=== PATIENT | male | born 1935 | race Caucasian/White ===

== ENCOUNTER → 2017-09-04 | Outpatient (CLI) | payer OTHER | END | disposition home or self-care (01) | LOC: KCIC 12:29 | DX: J43.9 Emphysema, unspecified (principal); M47.894 Other spondylosis, thoracic region; D71 Functional disorders of polymorphonuclear neutrophils; I70.0 Atherosclerosis of aorta | CPT/HCPCS: 71046 ==

== ENCOUNTER → 2020-01-05 | Outpatient (CLI) | payer MEDICARE ==
--- NOTE | 2020-01-05 16:02 | RAD ---
MR#: [id number] Date of Study: 01/05/2020 Ordering Physician: RAFAEL BLANCO, Referring Physician: RAFAEL BLANCO, Tech: Aidan Garza MBA, RDMS, RVT, RDCS, RTR APPROVED REPORT Patient Location: OUT-PATIENT Laterality:Bilateral Indications Bruit Doppler Spectral Velocity Analysis Right Left pCCA 82/9 cm/spCCA 77/13 cm/s mCCA 77/8 cm/smCCA 93/14 cm/s dCCA 80/10 cm/sdCCA 94/14 cm/s Bulb 87/15 cm/sBulb 121/26 cm/s ECA 119/ cm/sECA 226/ cm/s pICA 114/19 cm/spICA 128/19 cm/s Leilani 122/22 cm/smICA 100/20 cm/s dICA 110/19 cm/sdICA 100/18 cm/s Vert. 44/ cm/sVert. 103/ cm/s Subcl. 205/ cm/sSubcl. 152/ cm/s ICA/CCA 1.49ICA/CCA 1.66 Findings Grayscale images of the bilateral common carotid, external and internal carotid vessels demonstrates mild diffuse intimal hyperplasia. There is heavy calcific plaque burden at the level of the carotid bifurcation bilaterally. Nonetheless, based on velocity and Doppler evaluation there is overall 0 to less than 50% stenosis involving the bilateral internal carotid arteries. Bilateral vertebral veloc ities are antegrade. Likely greater than 50% stenosis involving the left external carotid artery onl y. Right external carotid artery is otherwise unremarkable. No significant subclavian disease bilat erally Critical Notification Critical Value: No <Conclusion> 1. Grayscale images demonstrate heavy calcific plaque burden at the level of the carotid bifurcation s, based on velocity criteria overall though there is 0 to less than 50% stenosis. 2. If there is prior history of CVA or clinical concern for TIAs, would consider CT angiography of t he neck and cerebral vessels. Signed by : Robert Sepulveda, Electronically Approved : 01/05/2020 16:01:56
--- NOTE | 2020-01-05 16:34 | CARD ---
MR#: [id number] Date of Study: 01/05/2020 Ordering Physician: RAFAEL DEL REAL, Referring Physician: RAFAEL DEL REAL, Tech: Kristy Shea IJEOMA APPROVED REPORT EXAM: Two-dimensional and M-mode echocardiogram with Doppler and color Doppler. Other Information Quality : Technically Limited Technically limited study due to rib/lung interference INDICATION Murmur 2D DIMENSIONS RVDd2.5 (2.9-3.5cm)Left Atrium(2D)3.2 (1.6-4.0cm) IVSd0.7 (0.7-1.1cm)Aortic Root(2D)1.7 (2.0-3.7cm) LVDd3.6 (3.9-5.9cm)LVOT Diameter1.7 (1.8-2.4cm) PWd0.7 (0.7-1.1cm)LVDs2.1 (2.5-4.0cm) FS (%) 30.0 %SV39.9 ml LVEF(%)60.0 (>50%) Aortic Valve AoV Peak Brayan.83.3cm/sAoV VTI18.2cm AO Peak GR.2.8mmHgLVOT Peak Brayan.84.9cm/s AO Mean GR.2mmHgAVA (VMAX)2.23cm2 BRONWYN (VTI)2.10cm2 Mitral Valve MV E Mqhfnnpl75.9cm/sMV DECEL TDPZ183rz MV A Vvlcbfpw36.1cm/sE/A Ratio0.8 Tricuspid Valve TR P. Kcnrtcwv189pl/sRAP [id number] TR Peak Gr.58gjIlBMWO10ydWg LEFT VENTRICLE The left ventricle is normal size. There is normal left ventricular wall thickness. The left ventricu lar systolic function is normal and the ejection fraction is within normal range. The Ejection Fracti on is 55-60%. There is normal LV segmental wall motion. Transmitral Doppler flow pattern is Grade I-a bnormal relaxation pattern. RIGHT VENTRICLE The right ventricle is normal size. The right ventricular systolic function is normal. ATRIA The left atrium size is normal. The right atrium size is normal. The interatrial septum is intact wit h no evidence for an atrial septal defect or patent foramen ovale as noted on 2-D or Doppler imaging. AORTIC VALVE The aortic valve is calcified but opens well. Doppler and Color Flow revealed no significant aortic r egurgitation. There is no significant aortic valvular stenosis. MITRAL VALVE The mitral valve is calcified but opens well. There is no evidence of mitral valve prolapse. There is no mitral valve stenosis. Doppler and Color Flow revealed trace mitral valve regurgitation. TRICUSPID VALVE The tricuspid valve is normal in structure and function. Doppler and Color Flow revealed no tricuspid valve regurgitation noted. There is no tricuspid valve stenosis. PULMONIC VALVE The pulmonic valve is not well visualized. Doppler and Color Flow revealed no pulmonic valvular regur gitation. There is no pulmonic valvular stenosis. GREAT VESSELS The aortic root is normal in size. The ascending aorta is not well seen. The IVC is normal in size an d collapses >50% with inspiration. PERICARDIAL EFFUSION There is no evidence of significant pericardial effusion. Critical Notification Critical Value: No <Conclusion> The left ventricle is normal size. The left ventricular systolic function is normal and the ejection fraction is within normal range. The Ejection Fraction is 55-60%. Doppler and Color Flow revealed no significant aortic regurgitation. There is no significant aortic valvular stenosis. Doppler and Color Flow revealed trace mitral valve regurgitation. Doppler and Color Flow revealed no tricuspid valve regurgitation noted. Signed by : Rafael Del Real MD Electronically Approved : 01/05/2020 16:34:04
== END | disposition home or self-care (01) ==
LOC: ECHO 13:31
PROVIDERS: ATTEND Internal Medicine Cardiovascular Disease
DX: I08.0 Rheumatic disorders of both mitral and aortic valves (principal); I65.23 Occlusion and stenosis of bilateral carotid arteries; I77.3 Arterial fibromuscular dysplasia
CPT/HCPCS: 93306; 93880